=== PATIENT | female | born 1975 | race Caucasian/White ===

== ENCOUNTER 2016-09-14 10:27 | Emergency (ER) | payer MEDICAID ==
[2016-05-05 07:13] VITALS: BMI 31.0
[~2016-09-14 10:27] MED LIST: ARMOUR THYROID30 MG PO; ATARAX 25 MG TA25 MG PO; FUROSEMIDE20 MG PO; HYDROCODONE-APA1 TAB PO; NORCO 7.5/325 T1 TA1 PO; PHENERGAN25 M1 PO; PRAVACHOL20 MG PO; SYNTHROID112 MCG PO
[2016-09-14 11:03] LABS: HEMATOCRIT 48.5 % (36.0-48.0); HEMOGLOBIN 16.6 g/dL (12-16); MCH 29.9 pg (26.0-34.0); MCHC 34.2 g/dL (31.0-37.0); MCV 87.4 fL (80.0-100.0); PLATELET COUNT 258 10x3/uL (130-400); RBC 5.55 10x6/uL (4.00-5.40); RDW 13.3 % (11.5-14.5); WBC 20.6 10x3/uL (4.8-10.8)
[2016-09-14 11:23] LABS: ALBUMIN 4.5 g/dL (3.4-5.0); ANION GAP 11.5 mmol/L (8-16); CARBON DIOXIDE 29.5 mmol/L (21.0-32.0); CREATININE - SERUM 0.9 mg/dL (0.6-1.3); PROTEIN - SERUM 8.2 g/dL (6.4-8.2)
[2016-09-14 11:54] LABS: APPEARANCE SLT CLOUDY (CLEAR); BACTERIA FEW /hpf (NONE SEEN); BILIRUBIN NEGATIVE (NEGATIVE); COLOR PINK (YELLOW); EPITHELIAL CELLS 0-5 /hpf (0-5); GLUCOSE NEGATIVE (NEGATIVE); KETONE NEGATIVE (NEGATIVE); LEUKOCYTE ESTERASE TRACE (NEGATIVE); NITRITE NEGATIVE (NEGATIVE); PROTEIN TRACE mg/dL (NEGATIVE); RED CELLS - URINE OCC /hpf (0-5); WHITE CELLS - URINE OCC /hpf (0-5)
[2016-09-14 11:55] LABS: AMORPHOUS SEDIMENT >1+ /lpf (NONE SEEN); MUCUS <1+ /lpf (NONE SEEN)
[2016-09-14 11:58] LABS: LYMPHOCYTES 6 % (15-50); MONOCYTES 7 % (2-11); NEUTROPHILS 79 % (40-80); PLATELET ESTIMATE NORMAL
== END 2016-09-14 12:49 | disposition home or self-care (01) ==
LOC: D.ER 10:27
PROVIDERS: Emergency Medicine Emergency Medical Services
DX: K52.9 Noninfective gastroenteritis and colitis, unspecified (principal)

== ENCOUNTER → 2017-05-12 17:02 | Outpatient (CLI) | payer OTHER ==
[2016-05-05 07:13] VITALS: BMI 31.0
== END | disposition home or self-care (01) ==
LOC: D.MAMMO 10:30
DX: Z12.31 Encounter for screening mammogram for malignant neoplasm of breast (principal)

== ENCOUNTER → 2018-08-22 15:13 | Outpatient (CLI) | payer MEDICAID ==
[2016-05-05 07:13] VITALS: BMI 31.0
== END | disposition home or self-care (01) ==
LOC: D.CT 15:13
DX: R10.9 Unspecified abdominal pain (principal)

== ENCOUNTER → 2019-11-11 14:01 | Outpatient (CLI) | payer MEDICAID ==
[2016-05-05 07:13] VITALS: BMI 31.0
== END | disposition home or self-care (01) ==
LOC: D.NM 14:01
PROVIDERS: ATTEND Internal Medicine Gastroenterology
DX: R10.84 Generalized abdominal pain (principal); R11.2 Nausea with vomiting, unspecified

== ENCOUNTER → 2020-05-08 13:34 | Outpatient (CLI) | payer MEDICAID ==
[2016-05-05 07:13] VITALS: BMI 31.0
== END | disposition home or self-care (01) ==
LOC: D.CT 13:30
PROVIDERS: ATTEND Internal Medicine Gastroenterology
DX: R10.84 Generalized abdominal pain (principal); R10.31 Right lower quadrant pain

== ENCOUNTER → 2020-06-26 10:56 | Outpatient (CLI) | payer MEDICAID ==
[2016-05-05 07:13] VITALS: BMI 31.0
== END | disposition home or self-care (01) ==
LOC: D.RAD 10:56
PROVIDERS: ATTEND Internal Medicine Gastroenterology
DX: R93.5 Abnormal findings on diagnostic imaging of other abdominal regions, including retroperitoneum (principal); R10.84 Generalized abdominal pain